=== PATIENT | male | born 1940 | race Caucasian/White ===

== ENCOUNTER 2017-03-08 10:30 | Inpatient (IN) | payer MEDICARE, OTHER ==
[~2017-03-08] VITALS: Ht 175.3 cm; Wt 86.7 kg
--- NOTE | ~2017-03-08 | DS ---
PATIENT'S NAME: STEFFANIE BRANHAM [facility] AGE: 76 Y [address] ROOM: [address] [address] LOCATION: GPCU ADMIT DATE: 03/08/2017 Discharge Summary DISCHARGE DATE: 03/16/2017 FAMILY PHYSICIAN: Rowan Kim MD ATTENDING PHYSICIAN: Luis Carlos Vasquez ADMITTING DIAGNOSIS: Abdominal pain with anemia. DISCHARGE DIAGNOSIS: Anemia with no source of gastrointestinal bleeding. SECONDARY DIAGNOSES: 1. Abdominal bloating. 2. Coumadin use, secondary to mechanical aortic valve. 3. Hypothyroidism. 4. History of carotid stenting. 5. Hypertension. 6. History of head and neck cancer, status post resection. PROCEDURES: 1. EGD done on 03/15/2017 that shows some mild gastritis. 2. Colonoscopy done on 03/15/2017 that shows small AVMs and polyps with status post colectomy. 3. CTA angiogram of the abdomen with intent to treat that shows no stenosis of celiac and SMA. 4. 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 CONSULTATIONS: GI and Interventional Radiology. HISTORY OF PRESENT ILLNESS: The patient is a 76-year-old gentleman who admitted on the 07 of March at the hospital at [place], [place], where he originally presented with increased shortness of breath and orthopnea. Initial workup was felt to be consistent with congestive heart failure exacerbation and the patient was given single dose of IV Lasix. Incidentally, the patient also endorsed of black tarry stool though he does not note this has been ongoing issue since he was started on iron supplement for chronic iron deficiency anemia. Upon admission at the outside facility, his hemoglobin had been 9.8, recent baseline as of December was around 11. His hemoglobin dropped around 8.7. This prompts a concern for GI bleeding and was transferred to our hospital. HOSPITAL COURSE: The patient was admitted to our hospital and was found to have INR of 5. CT abdomen shows narrowing of SMA, the patient's Coumadin was held, when the INR was in adequate range, the patient had abdominal angiogram with IR, Radiology would intent to treat; however, did not show any stenosis of SMA and celiac. No intervention was done. The patient was then seen by GI PATIENT'S NAME: STEFFANIE BRANHAM [facility] AGE: 76 Y [address] ROOM: [address] [place], [place] [address] LOCATION: GPCU ADMIT DATE: 03/08/2017 Discharge Summary DISCHARGE DATE: 03/16/2017 FAMILY PHYSICIAN: Rowan Kim MD ATTENDING PHYSICIAN: Luis Carlos Vasquez Dr. had EGD and colonoscopy done that shows gastritis and mild AVM. During his stay, the patient's hemoglobin was stable and stayed around 8. The patient was initially bridged with heparin drip. However, upon discharge, the patient was started on Lovenox until INR is between 2 and 3. Before discharge, long discussion made about signs and symptoms of acute bleeding as the patient is on Lovenox and also Plavix for his carotid stenting. The patient reports that he has an INR machine at home and will follow up with his daily INR. The patient also to have repeat CBC on March 20, 2017. CONDITION: Stable. DISPOSITION: Home. DISCHARGE MEDICATIONS: Please see MAR. Of note, the patient was discharged with Lovenox 1.5 mg/kg subcu daily until INR is between 2 to 3. DISCHARGE INSTRUCTIONS: If the patient is dizzy, has low blood pressure, has dark tarry stool and bloody stool to go to the next emergency department as this might be signs and symptoms of ongoing bleeding. PENDING STUDIES: Biopsy of the polyps. FOLLOWUP: Followup with PCP with repeat CBC on 03/20/2017 and GI. PHYSICAL EXAMINATION: VITAL SIGNS: Stable. HEAD: Normocephalic, atraumatic. CHEST: Clear to auscultation bilaterally. HEART: Regular rate and rhythm. No murmurs, rubs, or gallops. ABDOMEN: Soft, nontender, and nondistended. SKIN: Warm to touch. CHIEF TECHNOLOGY OFFICER: Alert and oriented x3. Motor and sensory grossly intact. Greater than 30 minutes was spent on discharge planning. MD NIKKO CORNEJO/sukhwinder /[id number] d: 03/17/17 0228 t: 03/20/17 0940, DISCHARGE SUMMARY
--- NOTE | ~2017-03-08 | ECHO ---
Transthoracic Echocardiography Report (TTE) Demographics Patient Name STEFFANIE BRANHAM Date of Study 03/08/2017 Patient Number [id number] Visit Number [id number] Date of 1940 Room Number G6301 Accession Number [id number] Gender Male Age 76 year(s) Referring Stone Banker Lora Enrique RDANTHONY, Physician RVT Physician Interpreting Vignesh Zaragoza Piece Hand Physician Supervising Ordering Physician Christina Aldridge CRNA, MD/MLP Nurse Stress Bulk Plant Agent Conclusions Summary The estimated left ventricular ejection fraction is 50%. Paradoxical septal motion consistent with post operative status . Mild concentric left ventricular hypertrophy. The left atrium is severely dilated The right atrium is mildly dilated. Moderate mitral regurgitation by color Doppler. Moderate to severe mitral annular calcification. The prosthetic aortic valve could not be visualized well. However, no significant perivalvular leak was seen. Mean gradient across aortic valve is 21 mmHg. Mild tricuspid regurgitation with estimated pulmonary pressure (RVSP) of 36 mmHg. Trivial circumferential pericardial effusion. Procedure Type of Study TTE procedure:2D Echocardiogram. Procedure Date Date: 03/08/2017 Start: 12:29 PM Study Location: Inpatient Portable Technical Quality: Adequate visualization Indications:Prosthetic valve function. Additional Indications:SOB Appropriate Use Criteria: 9 Patient Status: Routine Rhythm: Within normal limits HR: 69 bpm BP: 117/63 mmHg M-Mode/2D Measurements LV Diastolic Dimension: 4.98 cm LV Systolic Dimension: 3.26 cm LV Septum Diastolic: 1.14 cm LV Septum Systolic: 2.71 cm LV PW Diastolic: 1.02 cm AO Root Dimension: 2.3 cm Cardiac Output: 7.08 l/min LA Dimension: 4.8 cm Post Pericard Effusion: 0.2 cm LVOT: 2.2 cm IVC Inspiration: 0.91 cm LVOT VTI: 27 cm RV Base: 4.03 cm LV Stroke volume: 102.58 ml RV Length: 5.18 cm TAPSE: 2.2 cm TDI-S': 11 cm/s Doppler Measurements AV Peak Velocity: 3.1 m/s MV Peak E-Wave: 1.86 m/s AV Peak Gradient: 38.44 mmHg MV Peak A-Wave: 1.75 m/s AV Mean Gradient: 21 mmHg MV E/A Ratio: 1.06 LVOT Peak Velocity: 1.19 m/s MV P1/2t: 101 msec TR Gradient:33.18 mmHg PV Peak Velocity: 0.79 m/s Estimated RAP:3 mmHg PV Peak Gradient: 2.52 mmHg Estimated RVSP: 36 mmHg Estimated PASP: 36.18 mmHg E' Septal Velocity: 0.04 m/s A' Septal Velocity: 0.06 m/s E' Lateral Velocity: 0.06 m/s A' Lateral Velocity: 0.09 m/s MV E/E' Ratio: 32 Findings Left Ventricle The estimated left ventricular ejection fraction is 55-60%. Mild concentric left ventricular hypertrophy. Right Ventricle Grossly normal right ventricle structure and function. Left Atrium The left atrium is severely dilated Right Atrium The right atrium is mildly dilated. Mitral Valve Moderate mitral regurgitation by color Doppler. Moderate to severe mitral annular calcification. Aortic Valve The prosthetic aortic valve could not be visualized well. However, no significant perivalvular leak was seen. Mean gradient across aortic valve is 21 mmHg. Tricuspid Valve Mild tricuspid regurgitation with estimated pulmonary pressure (RVSP) of 36 mmHg. Pulmonic Valve The pulmonic valve is not well visualized. Pericardial Effusion Trivial circumferential pericardial effusion. Epicardial fat pad noted. Miscellaneous Visualized portions of the aortic root and ascending aorta appear normal in size. Pleural Effusion No evidence of pleural effusion. Signature dtt: FRANCISCO JAVIER CLOUD dtd: 03/08/17 1229 Physician Self Edit
--- NOTE | ~2017-03-08 | CON ---
PATIENT'S NAME: STEFFANIE BRANHAM [facility] AGE: 76 Y [address] ROOM: [address] [place], [place] [address] LOCATION: GPCU ADMIT DATE: 03/08/2017 Consultation DISCHARGE DATE: FAMILY PHYSICIAN: PHYSICIAN, UNKNOWN ATTENDING PHYSICIAN: TARA MAZARIEGOS DATE OF CONSULTATION: 03/08/2017 REASON FOR CONSULTATION: Melena stool. HISTORY OF PRESENT ILLNESS: This is a very pleasant, 76-year-old gentleman, who is admitted to [place], [place], with orthopnea, shortness of breath, abdominal discomfort, and melena stool. Initial workup felt that it was consistent with congestive heart failure exacerbation as he was given a dose of Lasix. He also at this time endorsed black tarry stools, though states that this has been an ongoing issue secondary to iron supplementation for chronic iron deficiency anemia. On admission to the outside facility, hemoglobin was 9.8 with a recent baseline in December was 11.6. The patient's hemoglobin dropped to 8.7, though the patient remained hemodynamically stable. He was asked to be transferred to [facility] for definitive workup, and on workup as well at the outside facility, CT abdomen was performed, given the patient's ongoing abdominal discomfort which he describes as diffuse ache, primarily postprandial discomfort with abdominal bloating with food and water. CT showed narrow SMA and renal artery consistent with his known vascular history as well as potential of some free fluid in his pelvic area. The patient was seen and examined. He again states that he has noticed black tarry stools ever since beginning the iron. He denies any associated abdominal "pain." He does complain of postprandial abdominal bloating. He states that he even gets bloated with water ingestion. He denies any history of upper endoscopy. He did undergo a colonoscopy in approximately 2013 that he states it was normal. This was completed in [place]. 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 He denies any NSAID use. He denies any current chest pain, chest pressure, shortness of breath, fever, or chills. 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 PAST SURGICAL HISTORY: PATIENT'S NAME: STEFFANIE BRANHAM [facility] AGE: 76 Y [address] ROOM: [address] [address] [facility] ADMIT DATE: 03/08/2017 Consultation DISCHARGE DATE: FAMILY PHYSICIAN: PHYSICIAN, UNKNOWN ATTENDING PHYSICIAN: TARA MAZARIEGOS Tongue resection for oral cancer, aortic valve replacement, carotid stenting, and colonoscopy in 2013. SOCIAL HISTORY: Remote history of smoking. No significant alcohol use or illicit drug use. FAMILY HISTORY: Denies any known gastrointestinal disease to his knowledge. ALLERGIES: NO KNOWN MEDICATION ALLERGIES. CURRENT MEDICATIONS: Please refer to the medication administration record. REVIEW OF SYSTEMS: All-point review of systems was completed. All were negative except for those identified in the history of present illness. PHYSICAL EXAMINATION: GENERAL: A very pleasant, 76-year-old gentleman, lying in bed, who appears to be in no acute distress. VITAL SIGNS: Temperature 97.5, pulse is 77, respirations of 16, blood pressure 128/78, oxygen saturations 99% on room air. SKIN: [place], warm, dry. No jaundice. HEENT: Head is normocephalic and atraumatic. Pupils are equal, round, and reactive to light. Sclerae are clear and nonicteric. Oral mucosa is pink and moist. No thyromegaly. NECK: Soft and supple. CARDIOVASCULAR: Regular. Normal S1, S2. RESPIRATORY: Respirations even and unlabored. LUNGS: Clear to auscultation. ABDOMEN: Soft, round, nontender, and nondistended. Bowel sounds positive. MUSCULOSKELETAL: No muscle weakness or atrophy. EXTREMITIES: No edema. NEUROLOGIC: Grossly nonfocal. LABORATORY AND DIAGNOSTIC DATA: Laboratory obtained at [facility] did include a white blood cell count of 4.3, hemoglobin 9.1, hematocrit. 25.6, and platelets of 175. Chemistry panel includes a glucose of 114, BUN of 24, creatinine 1.3. Sodium 133, potassium of 3.7, chloride 99, CO2 of 25, AST of 145, ALT of 155, alkaline phosphatase 67, total bilirubin 0.7. Pro-time 51.8, INR is 4.86. CT as above. PATIENT'S NAME: STEFFANIE BRANHAM [facility] AGE: 76 Y [address] ROOM: [address] [place], [place] [address] [facility] ADMIT DATE: 03/08/2017 Consultation DISCHARGE DATE: FAMILY PHYSICIAN: PHYSICIAN, UNKNOWN ATTENDING PHYSICIAN: TARA MAZARIEGOS ASSESSMENT AND PLAN: Again, this is a very pleasant, 76-year-old male, who was recently transferred from [place], [place]. 1. Melena stool. We will confirm stool as far as checking for occult blood. The patient's hemoglobin will be trended as it currently has been reasonable be stable. Likely, the patient's melena stool is related to the oral iron. If further evidence of GI bleed, then possible upper endoscopy will be warranted, though Anesthesia will also be consulted for evaluation of airway control secondary to his numerous oral and neck surgeries. 2. Abdominal bloating. CT did show narrowed SMA. I do question if this is SMA syndrome. At this time, we will check stool for H pylori to rule this out. We will also request for the CT image to be sent to us so our radiologist can evaluate this with us as well. Further recommendations to be given over the course of the patient's hospitalization. Thank you for this consult. ANDREA ARITA APRN FOR MD URSULA CORNELIUS/phuongl /[id number] d: 03/09/17 1314 t: 03/10/17 1117, CONSULTATION REPORT
--- NOTE | ~2017-03-08 | HP ---
PATIENT'S NAME: STEFFANIE BRANHAM [facility] AGE: 76 Y [address] ROOM: [address] [place] [id number] LOCATION: GPCU ADMIT DATE: 03/08/2017 History & Physical DISCHARGE DATE: FAMILY PHYSICIAN: PHYSICIAN, UNKNOWN ATTENDING PHYSICIAN: TARA MAZARIEGOS DATE OF SERVICE: 03/08/2017 CHIEF COMPLAINT: Shortness of breath, orthopnea, and abdominal discomfort. HISTORY OF PRESENT ILLNESS: This is a very pleasant 76-year-old male admitted on the 07 of March at hospital in [place], [place], where he originally presented with increased shortness of breath and orthopnea yesterday. Initial workup was felt to be consistent with a congestive heart failure exacerbation and the patient was given a single dose of IV Lasix. Incidentally, the patient had also endorsed black tarry stools, though he does note this has been an ongoing issue ever since starting iron supplementation for chronic iron deficiency anemia. Upon admission at outside facility, hemoglobin was 9.8 from a recent baseline in December of 11.6. This morning, hemoglobin dropped further to 8.7, and while the patient remains hemodynamically stable, this prompted concern for GI bleeding and necessitated transfer to [facility]. Also of note, is that the patient has a history of mechanical aortic valve and extensive vascular history including bilateral carotid stenting and for his aortic valve, is on warfarin with an INR goal between 2.5 and 3.5. INR was found to be 5.0 at outside facility. This was not reversed as the patient was, as mentioned, hemodynamically stable and without further witnessed GI bleeding during his stay. Also of note, CT abdomen was performed given the patient's ongoing abdominal discomfort which was described as a diffuse achy, primarily postprandial discomfort with bloating. This CT scan did show a narrow SMA and renal artery consistent with his known vascular history as well as the potential of ascites. The patient is seen immediately upon arrival to the floor, and endorses no new concerns other than that which were noted above. This includes no fevers, chills, chest pain, shortness of breath, palpitations, constipation, diarrhea, dysuria, difficulty voiding, or leg swelling. PAST MEDICAL HISTORY: 1. History of carotid stenting. 2. Mechanical aortic valve replacement with a [place] valve. 3. Peripheral vascular disease. 4. Hypertension. 5. Hyperlipidemia. 6. 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 PATIENT'S NAME: [facility] AGE: 76 Y [address] ROOM: [place] [address] LOCATION: GPCU ADMIT DATE: 03/08/2017 History & Physical DISCHARGE DATE: FAMILY PHYSICIAN: PHYSICIAN, UNKNOWN ATTENDING PHYSICIAN: TARA MAZARIEGOS 7. History of diverticulosis. 8. Osteoarthritis. 9. Hypothyroidism. 10. Hearing loss. PAST SURGICAL HISTORY: 1. Tongue resection for oral cancer. 2. Aortic valve replacement. 3. Carotid stenting. FAMILY HISTORY: Reviewed and noncontributory to current presentation. SOCIAL HISTORY: Remote history of smoking. No significant alcohol use the patient endorses. ALLERGIES: NO KNOWN DRUG ALLERGIES. MEDICATIONS: Currently being reconciled but per prior records does appear to be on: 1. Amlodipine. 2. Atorvastatin. 3. Ascorbic acid. 4. Calcium. 5. Coreg. 6. Vitamin B12. 7. Ferrous sulfate. 8. Levothyroxine. 9. Methyldopa. 10. MiraLAX. 11. Plavix. 12. Coumadin. REVIEW OF SYSTEMS: Complete review of systems performed and negative except as noted above in HPI. PHYSICAL EXAMINATION: VITAL SIGNS: Most recent vital sign evaluation notable for temperature afebrile, pulse 78, blood pressure on arrival one teens over 60s, respirations 16, saturating 97% on room air. GENERAL: The patient is in no acute distress, very pleasant, elderly male who is hard of hearing. HEAD: Normocephalic and atraumatic. PATIENT'S NAME: [facility] AGE: 76 Y [address] ROOM: [place] [address] LOCATION: GPCU ADMIT DATE: 03/08/2017 History & Physical DISCHARGE DATE: FAMILY PHYSICIAN: PHYSICIAN, UNKNOWN ATTENDING PHYSICIAN: TARA MAZARIEGOS EYES: Pupils equal, round, and reactive to light. Extraocular muscles intact. No scleral icterus. No conjunctival pallor or injection. ENT: Mucous membranes are moist. No nasal discharge. NECK: Supple. No lymphadenopathy. Positive hepatojugular reflex. CARDIOVASCULAR: Regular rate and rhythm. [place] S2 consistent with no mechanical aortic valve as well as a systolic ejection murmur. RESPIRATIONS: Clear to auscultation bilaterally with normal respiratory effort, saturating well on room air. ABDOMEN: Soft, nontender, nondistended with normoactive bowel sounds. EXTREMITIES: With trace edema bilateral distal to mid calle. SKIN: Without appreciable lesions on exposed skin of trunk and extremities. NEUROLOGIC: The patient is alert and oriented x3. Pleasant and cooperative with 5/5 strength bilaterally and no appreciable sensory deficits. PSYCHIATRIC: With normal mood and affect. LABS AND IMAGING: Labs and imaging from outside hospital, current labs here are pending. This includes CBC with a white count 4.5, hemoglobin 8.7, platelets 166. Sodium 131, potassium 4.0, chloride 92, bicarb 25, BUN 24, creatinine 1.2, which is at baseline. Glucose 101, calcium is 8.4, phos 3.6, albumin 3.5, INR 5.0. CT chest with some interstitial disease which appears to be chronic. BNP was elevated at 729. Ferritin greater than 800. Colonoscopy reviewed from [address] which [address] abdomen and pelvis without significant findings to explain discomfort aside from a narrow SMA and renal artery and some free fluid appreciated on exam. ASSESSMENT: 1. Concern for acute gastrointestinal bleeding. 2. Supratherapeutic INR. 3. Peripheral vascular disease. 4. Acute on chronic iron deficiency anemia. 5. History of aortic valve replacement, anticoagulated with goal INR 2.5 to 3.5. 6. Probable chronic kidney disease with baseline creatinine 1.2. PLAN: We'll admit to inpatient status with concern for GI bleed though the patient is currently hemodynamically stable and hemoglobin is only slightly decreased from baseline. Repeat labs here are pending. In the setting of a supratherapeutic INR, we will hold off on reversal of this currently as there is no instability nor active bleeding that has been currently appreciated and goal is between 2.5 to 3.5. We will discuss case with Gastroenterology and if need for endoscopy and reversal of INR, we will likely need bridging with Lovenox. We will continue home iron supplementation as well as antihypertensive agents. We will also continue home levothyroxine. We will PATIENT'S NAME: STEFFANIE BRANHAM [facility] AGE: 76 Y [address] ROOM: [address] [place] [id number] [facility] ADMIT DATE: 03/08/2017 History & Physical DISCHARGE DATE: FAMILY PHYSICIAN: PHYSICIAN, UNKNOWN ATTENDING PHYSICIAN: TARA MAZARIEGOS hold off on further diuresis as the patient is on room air with clear lungs and trace lower extremity edema and while BNP is elevated somewhat, clinical presentation is not currently consistent with a CHF exacerbation. We will further evaluate this with a transthoracic echocardiogram. We will check a fecal occult blood on first stool sample as well as repeating labs to include CBC, CMS, troponin, BNP, INR, LDH and haptoglobin to rule out hemolysis in the setting of a mechanical aortic valve. Will allow the patient to have clear liquids for now until GI evaluation as do not anticipate scope currently but potentially tomorrow pending course. The patient is a full code. I spent 35 minutes on date of admission reviewing outside records as well as in [id number] evaluation of the patient. MD KIRIT VALLES/sukhwinder /[id number] D: 756 T: 823 HISTORY & PHYSICAL
--- NOTE | 2017-03-08 11:25 | NUR ---
Pt is 76 y/o male admit for dark stools for hospitalist. Pt alert and oriented x3. No allergies. Hx htn,hypercholest,AVR, head and neck cancer,SOB,OA knees, dark stools,recent diarrhea,leaking/dribbling,hypothyroid. PT has been having dark stools for awhile due to taking iron tablets but he has had diarrhea lately. Standby assist,gait belt. Plan for GI consult. Resides at home by himself.
[2017-03-08] MEDS ORDERED: C-10001000 MG PO (11:46)
[2017-03-08] MEDS ORDERED: NORVASC5 MG PO (11:46)
[2017-03-08] MEDS ORDERED: OSCAL500 MG PO (11:47)
[2017-03-08] MEDS ORDERED: LIPITOR40 MG PO (11:47)
[2017-03-08] MEDS ORDERED: COREG25 MG PO (11:48)
[2017-03-08] MEDS ORDERED: FISH OIL 1,0001 EAC1 PO (11:49)
[2017-03-08] MEDS ORDERED: VITAMIN B-121000 MCG PO (11:49)
[2017-03-08] MEDS ORDERED: LEVOTHROID (SY50 MCG PO (11:50)
[2017-03-08] MEDS ORDERED: IRON65 PO (11:50)
[2017-03-08] MEDS ORDERED: PROTONIX40 MG PO (11:51)
[2017-03-08] MEDS ORDERED: THERAGRAN-M1 TAB PO (11:51)
[2017-03-08] MEDS ORDERED: ALDOMET250 MG PO (11:51)
[2017-03-08] MEDS ORDERED: PLAVIX75 MG PO (11:52)
[2017-03-08] MEDS ORDERED: VITAMIN D35000 UNI1 PO (11:53)
[2017-03-08] MEDS ORDERED: VITAMIN A8000 UNIT PO (11:53)
[2017-03-08] MEDS ORDERED: VITAMIN E1000 UNI1 PO (11:54)
[2017-03-08] MEDS ORDERED: COUMADIN ** IA5 MG PO ×2 (11:55→11:56)
[2017-03-08 12:22] LABS: BASOPHIL % 0.5 %; EOSINOPHIL # 0.2 K/uL (0.0-0.5); EOSINOPHIL % 3.7 %; HEMATOCRIT 25.6 % (37.0-53.0); HEMOGLOBIN 9.1 g/dL (11.0-16.0); IMMATURE GRANULOCYTE % 0.7 %; LYMPHOCYTE # 0.6 K/uL (0.8-4.0); LYMPHOCYTE % 14.1 %; MCH 33.7 pg (27.0-34.0); MCHC 35.5 gm/dL (32.0-36.5); MCV 94.8 fl (83.0-98.0); MONOCYTE # 0.5 K/uL (0.0-1.0); MONOCYTE % 10.8 %; MPV 10.7 fl (9.4-12.4); NEUTROPHIL # (ANC) 3.1 K/uL (1.4-9.0); NEUTROPHIL % 70.2 %; NRBC % 0 /100WBC (0-0.00); PLATELET COUNT 175 K/uL (150-450); RDW-CV 13.5 % (11.9-14.6); WBC 4.3 K/uL (4.0-11.0)
[2017-03-08 12:33] LABS: INR - (THERAPEUTIC) 4.86 (0.92-1.07); PROTIME 51.8 SECONDS (9.8-11.4)
[2017-03-08 12:41] LABS: ALK PHOS 67 IU/L (33-138); ALT 155 IU/L (12-78); ANION GAP 12.7 (10.0-19.0); AST 145 IU/L (10-40); BLOOD UREA NITROGEN 24 mg/dL (6-24); CALCIUM 8.2 mg/dL (8.5-10.5); CHLORIDE 99 mMol/L (96-110); CO2 25 mMol/L (22-32); CREATININE 1.3 mg/dL (0.6-1.3); POTASSIUM 3.7 mMol/L (3.7-5.1); SODIUM 133 mMol/L (135-145); TOTAL BILIRUBIN 0.7 mg/dL (0.0-1.5); TOTAL PROTEIN 7.8 g/dL (6.0-8.4)
--- NOTE | 2017-03-08 16:09 | NUR ---
Significant Event:Pt arrived from [place] at 1045. Pt was seen by GI. Patient has had no complaints of nausea. Need stool for hemoccult and h.pylori. Q6h H&H. INR 4.1 and hemoglobin 9.1. Diet advanced to regular. Follow up: cont plan of care
[2017-03-08 18:01] LABS: HEMATOCRIT 25.1 % (37.0-53.0); HEMOGLOBIN 8.9 g/dL (11.0-16.0)
[2017-03-08 23:36] LABS: HEMATOCRIT 25.1 % (37.0-53.0); HEMOGLOBIN 8.8 g/dL (11.0-16.0)
[2017-03-09 05:43] LABS: BASOPHIL % 0.4 %; EOSINOPHIL # 0.2 K/uL (0.0-0.5); EOSINOPHIL % 3.9 %; HEMOGLOBIN 8.5 g/dL (11.0-16.0); IMMATURE GRANULOCYTE % 0.2 %; LYMPHOCYTE # 0.7 K/uL (0.8-4.0); MCH 32.7 pg (27.0-34.0); MCV 96.2 fl (83.0-98.0); MONOCYTE # 0.5 K/uL (0.0-1.0); MONOCYTE % 11.6 %; MPV 10.1 fl (9.4-12.4); NEUTROPHIL # (ANC) 3.1 K/uL (1.4-9.0); NEUTROPHIL % 67.9 %; NRBC % 0 /100WBC (0-0.00); PLATELET COUNT 176 K/uL (150-450); RDW-CV 13.9 % (11.9-14.6); WBC 4.6 K/uL (4.0-11.0)
[2017-03-09 05:58] LABS: INR - (THERAPEUTIC) 4.06 (0.92-1.07); PROTIME 43.2 SECONDS (9.8-11.4)
[2017-03-09 05:59] LABS: ANION GAP 11.1 (10.0-19.0); CREATININE 1.1 mg/dL (0.6-1.3); POTASSIUM 4.1 mMol/L (3.7-5.1)
--- NOTE | 2017-03-09 07:16 | NUR ---
Significant Event: Patient is alert and oriented x 3. VSS on room air. Max temp of 99.4. Up with 1 assist. No BM this shift. Denies any pain. Right forearm IV with NS running at 100 ml/hr. H&H q6 hours. Patient is pleasant and cooperative with cares. Follow up:
[2017-03-09 12:06] LABS: HEMATOCRIT 24.2 % (37.0-53.0); HEMOGLOBIN 8.5 g/dL (11.0-16.0)
--- NOTE | 2017-03-09 13:17 | NUR ---
Introduced self and role of care management to patient and his daughter. He lives in [facility] by himself. He states that he is able to do all his own ADL's. He does have a cane at home he uses occasionally. He has 2 daughters that live close by that assist as needed. He plans on returning home on discharge. He denies any needs at this time. Will continue to follow.
--- NOTE | 2017-03-09 16:16 | NUR ---
Significant Event: pt showered today, had looser bm. INR 4.0. Hgb staying 8.5, next at 1800. Pt daughter here with him. IVf dcd. Follow up:
[2017-03-09 17:45] LABS: HEMATOCRIT 23.7 % (37.0-53.0); HEMOGLOBIN 8.3 g/dL (11.0-16.0)
[2017-03-09 23:31] LABS: HEMATOCRIT 23.6 % (37.0-53.0); HEMOGLOBIN 8.3 g/dL (11.0-16.0)
--- NOTE | 2017-03-10 04:17 | NUR ---
Significant Event: A/O x3. Afebrile. Denies pain. VSS on RA. SBP 110-130s. HR 60-70s. LS clear/dim. H&H q 6 hours. Last HGB 8.3. Up standby assist. Follow up: Continue to monitor per plan of care.
[2017-03-10 06:02] LABS: BASOPHIL % 0.3 %; EOSINOPHIL # 0.2 K/uL (0.0-0.5); EOSINOPHIL % 3.1 %; HEMATOCRIT 27.4 % (37.0-53.0); HEMOGLOBIN 9.4 g/dL (11.0-16.0); IMMATURE GRANULOCYTE % 0.6 %; LYMPHOCYTE # 0.5 K/uL (0.8-4.0); LYMPHOCYTE % 8.4 %; MCH 33.1 pg (27.0-34.0); MCHC 34.3 gm/dL (32.0-36.5); MCV 96.5 fl (83.0-98.0); MONOCYTE # 0.4 K/uL (0.0-1.0); MONOCYTE % 6.8 %; MPV 10.4 fl (9.4-12.4); NEUTROPHIL # (ANC) 5.2 K/uL (1.4-9.0); NEUTROPHIL % 80.8 %; NRBC % 0 /100WBC (0-0.00); RBC 2.84 M/uL (3.50-5.50); WBC 6.4 K/uL (4.0-11.0)
[2017-03-10 06:04] LABS: PLATELET COUNT 223 K/uL (150-450)
[2017-03-10 06:08] LABS: INR - (THERAPEUTIC) 2.86 (0.92-1.07); PROTIME 30.4 SECONDS (9.8-11.4)
[2017-03-10 06:17] LABS: ANION GAP 11.9 (10.0-19.0); CALCIUM 8.4 mg/dL (8.5-10.5); POTASSIUM 3.9 mMol/L (3.7-5.1)
--- NOTE | 2017-03-10 15:52 | NUR ---
Significant Event: pt up in room ok. Pt had CT angiogram today of abdomen. INR 2.8, coumadin today. Pt rests in bed and chair. Pt daughter here with him. Follow up:
--- NOTE | 2017-03-11 03:56 | NUR ---
A&Ox3. Denies any pain. VSS on R/A. Lungs clear. Up with assist. Voids per urinal adequate output. IV to R) forearm SL. D/C in AM.
[2017-03-11 06:05] LABS: HEMATOCRIT 27.1 % (37.0-53.0); HEMOGLOBIN 9.4 g/dL (11.0-16.0)
[2017-03-11 06:24] LABS: INR - (THERAPEUTIC) 2.48 (0.92-1.07); PROTIME 26.3 SECONDS (9.8-11.4)
[2017-03-11 06:31] LABS: ANION GAP 9.7 (10.0-19.0); CALCIUM 8.3 mg/dL (8.5-10.5); POTASSIUM 3.7 mMol/L (3.7-5.1)
[2017-03-11 11:26] LABS: HEMOGLOBIN 8.7 g/dL (11.0-16.0); MCH 33.7 pg (27.0-34.0); MCHC 34.8 gm/dL (32.0-36.5); MCV 96.9 fl (83.0-98.0); PLATELET COUNT 216 K/uL (150-450); RBC 2.58 M/uL (3.50-5.50); RDW-CV 13.9 % (11.9-14.6); WBC 6.4 K/uL (4.0-11.0)
[2017-03-11 11:57] LABS: ABSOLUTE NEUTROPHIL CT (ANC) 5.7 K/uL (1.4-9.0); BANDED NEUTROPHIL # 0.6 K/uL (0.0-0.1); BANDED NEUTROPHILS % 10 %; LYMPHOCYTE # 0.4 K/uL (0.8-4.0); LYMPHOCYTE % 7 %; MONOCYTE # 0.2 K/uL (0.0-1.0); SEGMENTED NEUTROPHIL # 5.1 K/uL (1.4-9.0); SEGMENTED NEUTROPHIL % 79 %
--- NOTE | 2017-03-11 19:03 | NUR ---
Significant Event: Patient alert and oreinated. Room air, Vital signs within normal limits. Regular diet. Patient has Heparin drip 1000unit/hr. Next PTTHP at 2014. Coumadin discontinued. Patient will have possible stenting of mesenteric atery by Dr. Nolen Monday. Able to void, BM today. Follow up: Procedure Monday. Discharge home??
[2017-03-12 03:40] LABS: BASOPHIL % 0.2 %; EOSINOPHIL # 0.1 K/uL (0.0-0.5); EOSINOPHIL % 2.5 %; HEMATOCRIT 23.9 % (37.0-53.0); HEMOGLOBIN 8.3 g/dL (11.0-16.0); IMMATURE GRANULOCYTE % 0.8 %; LYMPHOCYTE # 0.7 K/uL (0.8-4.0); LYMPHOCYTE % 13.3 %; MCH 33.5 pg (27.0-34.0); MCHC 34.7 gm/dL (32.0-36.5); MCV 96.4 fl (83.0-98.0); MONOCYTE # 0.4 K/uL (0.0-1.0); MPV 9.8 fl (9.4-12.4); NEUTROPHIL # (ANC) 3.7 K/uL (1.4-9.0); NEUTROPHIL % 75.2 %; NRBC % 0 /100WBC (0-0.00); PLATELET COUNT 215 K/uL (150-450); RBC 2.48 M/uL (3.50-5.50); RDW-CV 14.1 % (11.9-14.6); WBC 4.9 K/uL (4.0-11.0)
[2017-03-12 03:50] LABS: INR - (THERAPEUTIC) 1.5 (0.92-1.07); PROTIME 15.8 SECONDS (9.8-11.4)
[2017-03-12 04:01] LABS: ALBUMIN 2.6 gm/dL (3.5-5.0); ANION GAP 10.7 (10.0-19.0); CALCIUM 7.9 mg/dL (8.5-10.5); PHOSPHORUS 2.9 mg/dL (2.5-4.9); POTASSIUM 3.7 mMol/L (3.7-5.1)
--- NOTE | 2017-03-12 04:12 | NUR ---
A&Ox3. Calm/cooperative with cares. Coumadin D/C and vitamin K given yesterday to reverse. Started on heparin gtt at 1,000 units. Increased to 1,100 units per protocol. Will have stenting to mesentaric artery on Monday. Hgb down to 8.4 this AM. Up with one assist, voids adequate amounts, and denies pain. IV to R) posterior forearm. VSS on R/A. No BMs this shift.
--- NOTE | 2017-03-12 15:45 | NUR ---
Significant Event: A/O X 3. UP WITH SBA. DENIES PAIN. SR IN 80'S. AFERILE. SATS 95% ROOM AIR. SBP 102-126. NO STOOLS TODAY. VOIDS PER URINAL. Follow up: ?? IR WITH DR. PADILLA FOR ANGIOPLASTY OF MESENTERIC ARTERT. DR. PADILLA WILL REVIEW CT SCAN FIRST. ONLY CLEAR LIQUIDS AFTER MIDNOC PRIOR TO EXAM
--- NOTE | 2017-03-13 03:45 | NUR ---
A&Ox3. Calm/cooperative with cares. 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 Up with stand by assist. VSS on R/A. Denies pain. IV to R) forearm infusing heparin gtt @ 1,200 units. Therapeutic next PTTHP @ 0615 this am. To go for possible stent placement of SMA. NPO at midnight. C/O of some bloating at times but is passing some gas. Voids per urinal adequate output. Possible D/C if no stent is needed
[2017-03-13 06:30] LABS: BASOPHIL % 0.2 %; EOSINOPHIL # 0.1 K/uL (0.0-0.5); EOSINOPHIL % 2.1 %; HEMATOCRIT 24.3 % (37.0-53.0); HEMOGLOBIN 8.5 g/dL (11.0-16.0); IMMATURE GRANULOCYTE % 0.6 %; LYMPHOCYTE # 0.7 K/uL (0.8-4.0); LYMPHOCYTE % 11.3 %; MCH 33.7 pg (27.0-34.0); MCV 96.4 fl (83.0-98.0); MONOCYTE # 0.4 K/uL (0.0-1.0); MONOCYTE % 6.5 %; MPV 10.1 fl (9.4-12.4); NEUTROPHIL % 79.3 %; NRBC % 0 /100WBC (0-0.00); PLATELET COUNT 261 K/uL (150-450); RBC 2.52 M/uL (3.50-5.50); RDW-CV 13.9 % (11.9-14.6); WBC 6.3 K/uL (4.0-11.0)
[2017-03-13 06:38] LABS: PROTIME 12.2 SECONDS (9.8-11.4)
[2017-03-13 06:41] LABS: INR - (THERAPEUTIC) 1.16 (0.92-1.07)
[2017-03-13 06:42] LABS: ALBUMIN 2.6 gm/dL (3.5-5.0); ANION GAP 9.9 (10.0-19.0); CALCIUM 8.2 mg/dL (8.5-10.5); MAGNESIUM 2.1 mg/dL (1.8-2.6); POTASSIUM 3.9 mMol/L (3.7-5.1); TOTAL BILIRUBIN 0.6 mg/dL (0.0-1.5); TOTAL PROTEIN 7.1 g/dL (6.0-8.4)
--- NOTE | 2017-03-13 13:25 | NUR ---
PT SCREENED D/T LOS. EST NEEDS: [id number] KCALS, 87-104 GM PROTEIN, 1 ML/KCAL FLUIDS. PT EATING 75-100%. BMI IN OVERWEIGHT RANGE. NO NUTRITION-RELATED DX IDENTIFIED. WILL F/U IN 7-10 DAYS.
--- NOTE | 2017-03-13 20:43 | NUR ---
Significant Event: Alert and oriented X 3. Room air. SBP 130's and 110's. HR 70's. and 80's. NPO throughout shift for procedure today. Patient to radiology/IR at 1645. Peripheral IV to right forearm. Up with 1 assist, gait belt. Pleasant and cooperative with cares. Follow up:
[2017-03-14 03:11] LABS: HEMATOCRIT 24.4 % (37.0-53.0); HEMOGLOBIN 8.4 g/dL (11.0-16.0); MCH 32.8 pg (27.0-34.0); MCHC 34.4 gm/dL (32.0-36.5); MCV 95.3 fl (83.0-98.0); MPV 10.2 fl (9.4-12.4); PLATELET COUNT 258 K/uL (150-450); RBC 2.56 M/uL (3.50-5.50); RDW-CV 13.8 % (11.9-14.6); WBC 8.6 K/uL (4.0-11.0)
[2017-03-14 03:23] LABS: ALBUMIN 2.6 gm/dL (3.5-5.0); ANION GAP 9.9 (10.0-19.0); CALCIUM 7.9 mg/dL (8.5-10.5); CREATININE 0.9 mg/dL (0.6-1.3); PHOSPHORUS 2.3 mg/dL (2.5-4.9); POTASSIUM 3.9 mMol/L (3.7-5.1)
[2017-03-14 03:35] LABS: INR - (THERAPEUTIC) 1.21 (0.92-1.07); PROTIME 12.7 SECONDS (9.8-11.4)
[2017-03-14 03:53] LABS: ABSOLUTE NEUTROPHIL CT (ANC) 8.2 K/uL (1.4-9.0); BANDED NEUTROPHIL # 0.6 K/uL (0.0-0.1); BANDED NEUTROPHILS % 7 %; LYMPHOCYTE # 0.2 K/uL (0.8-4.0); LYMPHOCYTE % 2 %; MONOCYTE # 0.2 K/uL (0.0-1.0); SEGMENTED NEUTROPHIL # 7.6 K/uL (1.4-9.0); SEGMENTED NEUTROPHIL % 88 %
--- NOTE | 2017-03-14 04:21 | NUR ---
Pt a/o x4. vss on RA, afebrile. Heparin restarted at 2100. Currently at 1500units/hr. next ptthp at 0945. SBA to RR. R Groin site benign. Diet is advance as tolerated. Choked on jello last night. Has to be sitting almost completely upright to take pills/food d/t surgical hx. denies pain. plan: ? discharge?
--- NOTE | 2017-03-14 16:41 | NUR ---
Significant Event: Alert and oriented X 3. Room air. SBP 100's and 120's. HR 70's and 80's. Up with 1 assist and gait belt. Right groin soft, dressing clean dry and intact. Patient becomes bloated, abdomen extended and firm, after eating solid foods. Becomes SOB after eatting d/t bloating. No SOB at this time. Heparin infusing at 1500 u/hr. Ptthp has been therapeutic throughout the shift. Next Ptthp will be at 2220. Heparin needs to be shut off at 0200 for procedures tomorrow. Pleasant and cooperative with cares. Follow up: EGD and colonoscopy tomorrow if cleared by anesthesia.
--- NOTE | 2017-03-15 04:08 | NUR ---
Pt a/o x4. vss on ra, afebrile. SuPrep given for colonoscopy. Anesthesia cleared for EGD. Consents need signed. Pt was too busy with prep to sign. Heparin off at 0215. SBA/BSC. denies pain. Plan: EGD/Colonoscopy today.
[2017-03-15 04:27] LABS: BASOPHIL % 0.1 %; EOSINOPHIL # 0.1 K/uL (0.0-0.5); EOSINOPHIL % 1.1 %; HEMATOCRIT 23.9 % (37.0-53.0); HEMOGLOBIN 8.3 g/dL (11.0-16.0); IMMATURE GRANULOCYTE % 0.4 %; LYMPHOCYTE # 0.8 K/uL (0.8-4.0); LYMPHOCYTE % 10.9 %; MCH 33.1 pg (27.0-34.0); MCHC 34.7 gm/dL (32.0-36.5); MCV 95.2 fl (83.0-98.0); MONOCYTE # 0.4 K/uL (0.0-1.0); MONOCYTE % 5.4 %; MPV 10.1 fl (9.4-12.4); NEUTROPHIL # (ANC) 5.8 K/uL (1.4-9.0); NEUTROPHIL % 82.1 %; NRBC % 0 /100WBC (0-0.00); PLATELET COUNT 267 K/uL (150-450); RBC 2.51 M/uL (3.50-5.50); RDW-CV 13.9 % (11.9-14.6); WBC 7.1 K/uL (4.0-11.0)
[2017-03-15 04:42] LABS: INR - (THERAPEUTIC) 1.24 (0.92-1.07); PROTIME 13.1 SECONDS (9.8-11.4)
--- NOTE | 2017-03-15 18:21 | NUR ---
Significant Event: ALERT & ORIENTED. VSS, SBP 150-190, AFEBRILE, ROOM AIR. EGD & COLONOSCOPY, TOOK BIOPSIES. DC HEPARIN, GAVE 90MG LOVENOX, PLAVIX, AND COUMADIN. Follow up: THERAPEUTIC INR THEN DC TO HOME
[2017-03-16 05:02] LABS: BASOPHIL % 0.2 %; EOSINOPHIL # 0.1 K/uL (0.0-0.5); EOSINOPHIL % 1.7 %; HEMATOCRIT 23.1 % (37.0-53.0); HEMOGLOBIN 8.1 g/dL (11.0-16.0); IMMATURE GRANULOCYTE % 0.7 %; LYMPHOCYTE # 0.6 K/uL (0.8-4.0); LYMPHOCYTE % 11.8 %; MCH 33.5 pg (27.0-34.0); MCHC 35.1 gm/dL (32.0-36.5); MCV 95.5 fl (83.0-98.0); MONOCYTE # 0.4 K/uL (0.0-1.0); MONOCYTE % 7.3 %; MPV 9.8 fl (9.4-12.4); NEUTROPHIL # (ANC) 4.2 K/uL (1.4-9.0); NEUTROPHIL % 78.3 %; NRBC % 0 /100WBC (0-0.00); PLATELET COUNT 238 K/uL (150-450); RBC 2.42 M/uL (3.50-5.50); RDW-CV 13.8 % (11.9-14.6); WBC 5.4 K/uL (4.0-11.0)
[2017-03-16 05:17] LABS: INR - (THERAPEUTIC) 1.3 (0.92-1.07); PROTIME 13.7 SECONDS (9.8-11.4)
[2017-03-16] MEDS ORDERED: LOVENOX 12120 MG/0.8 SUB-Q (10:11)
[2017-03-16] MEDS ORDERED: MYLICON OR GAS-80 MG PO (10:16)
--- NOTE | 2017-03-16 11:24 | NUR ---
PT DISCHARGE INSTRUCTIONS GIVEN AND VERBALIZED UNDERSTANDING OF BY PT AND DAUGHTER. PT VOICED HE HAS DONE LOVENOX INJECTIONS BEFORE AND KNOWS HOW TO DO IT. IV D/C'D PER DISCHARGE. DENIES PAIN. DISCHARGED BY AIDE TO FRONT DOOR WITH DAUGHTER AT 1117
== END 2017-03-16 11:52 | disposition disaster alternative care site (69) | DRG 253 ==
LOC: GPCU 10:44
PROVIDERS: Family Medicine; Internal Medicine; Internal Medicine Gastroenterology; Nurse Practitioner Family; ADMIT Internal Medicine
DX: I77.1 Stricture of artery (principal); K92.1 Melena; D50.0 Iron deficiency anemia secondary to blood loss (chronic); I10 Essential (primary) hypertension; I70.90 Unspecified atherosclerosis; I73.9 Peripheral vascular disease, unspecified; R79.1 Abnormal coagulation profile; Z79.01 Long term (current) use of anticoagulants; R14.0 Abdominal distension (gaseous); K63.5 Polyp of colon
CPT/HCPCS: C1760; C1769; C1894; J1644; J1650; J1940; J2250; J3010; J7030; Q9967